=== PATIENT | male | born 1955 | race Two or more races ===

== ENCOUNTER → 2016-10-25 | Outpatient (CLI) | payer OTHER | LOC: CIMAGING 14:46 | PROVIDERS: ATTEND Family Medicine | DX: R93.7 Abnormal findings on diagnostic imaging of other parts of musculoskeletal system (principal); M79.671 Pain in right foot | CPT/HCPCS: 73610-PO; 73630-PO ==

== ENCOUNTER 2017-05-07 05:15 | Inpatient (IN) | payer OTHER ==
[2017-05-07] MEDS ORDERED: LR 1,000 ML IV ONE (05:44)
[2017-05-07] MEDS ORDERED: LIDOCAINE 1% 2 ML INJ ID PRN (05:44)
--- NOTE | 2017-05-07 06:41 | PDHPUP ---
History & Physical Update H&P update statement: This history and physical update is based on an assessment of the patient which was completed after admission or registration (within 24 hours), but prior to the surgery/procedure. H&P update: H&P reviewed & patient examined, no change in patient's condition since H&P completed
[2017-05-07] MEDS ORDERED: MIDAZOLAM 2 MG/2 ML VIAL IVP ONE (07:10)
--- NOTE | 2017-05-07 07:10 | PDANEPAE ---
ANE History of Present Illness prostate ca ANE Past Medical History - Cardiovascular History Hx Hypertension: No Hx Arrhythmias: No Hx Chest Pain: No Hx Coronary Artery / Peripheral Vascular Disease: No Hx CHF / Valvular Disease: No Hx Palpitations: No - Pulmonary History Hx COPD: No Hx Asthma/Reactive Airway Disease: No Hx Recent Upper Respiratory Infection: No Hx Oxygen in Use at Home: No Hx Sleep Apnea: No Sleep Apnea Screening Result - Last Documented: Negative - Neurologic History Hx Cerebrovascular Accident: No Hx Seizures: No Hx Dementia: No - Endocrine History Hx Diabetes: No - Renal History Hx Renal Disorders: Yes Renal History Comment: prostate ca. bph. hx of uti - Liver History Hx Hepatic Disorders: No - Neurological & Psychiatric Hx Hx Neurological and Psychiatric Disorders: No - Cancer History Hx Cancer: Yes Cancer History Comment: prostate ca currently - Congenital Disorder History Hx Congenital Disorders: No - GI History Hx Gastrointestinal Disorders: No - Other Health History Other Health History: wears reading glasses. wears bilateral hearing aides - Chronic Pain History Chronic Pain: No - Surgical History Prior Surgeries: ear surgery. ankle surgery. knee surgery ANE Review of Systems Review of Systems: - Exercise capacity METS (RN): 5 METS ANE Patient History - Allergies Allergies/Adverse Reactions: No Known Allergies Allergy (Verified 04/16/17 10:54) - Home Medications Home Medications: Tamsulosin HCl [Flomax 0.4 MG (*)] 0.4 mg PO DAILY@1830 04/11/17 [Last Taken 06/09] - NPO status NPO Since - Liquids (Date): 05/06/17 NPO Since - Liquids (Time): 22:00 NPO Since - Solids (Date): 05/04/17 - Smoking Hx Smoking Status: Never smoked - Family Anes Hx Family Hx Anesthesia Complications: none ANE Labs/Vital Signs - Vital Signs Blood Pressure: 105/79 Heart Rate: 67 Respiratory Rate: 16 O2 Sat (%): 96 Height: 187.96 cm Weight: 8.618 kg ANE Physical Exam - Airway Neck exam: FROM Mallampati Score: Class 2 Mouth exam: normal dental/mouth exam - Pulmonary Pulmonary: no respiratory distress - Cardiovascular Cardiovascular: regular rate and rhythym - ASA Status ASA Status: II ANE Anesthesia Plan Anesthesia Plan: general endotracheal anesthesia
[2017-05-07] MEDS ORDERED: BUPIVACAINE 0.5% 30 ML SDV ONE (07:12)
[2017-05-07] MEDS ORDERED: ROCURONIUM 100 MG/10 ML VIAL ONE (07:13)
[2017-05-07] MEDS ORDERED: HYDROmorphONE/DILAUDID 2 MG/ML INJ ONE ×2 (07:13→12:08)
[2017-05-07] MEDS ORDERED: LIDOCAINE 2% 5 ML SDV ONE (07:13)
[2017-05-07] MEDS ORDERED: ONDANSETRON 4 MG/2 ML VIAL ONE (07:13)
[2017-05-07] MEDS ORDERED: DEXAMETHASONE 4 MG/ML VIAL ONE (07:13)
[2017-05-07] MEDS ORDERED: PROPOFOL 200 MG/20 ML VIAL ONE (07:14)
[2017-05-07] MEDS ORDERED: fentaNYL 100 MCG/2 ML INJ ONE ×3 (07:14→12:54)
[2017-05-07] MEDS ORDERED: ceFAZolin 2 GM in NS 100 ML IV ONE (07:17)
[2017-05-07 07:25] LABS: APTT 25.2 SEC (23.0-38.0); INR 1.19 (0.83-1.16); PROTIME(PATIENT) 15.1 SEC (12.0-15.0)
[2017-05-07 07:31] LABS: ANION GAP 6 mEq/L (8-16); CALCIUM 8.9 mg/dL (8.5-10.4); CARBON DIOXIDE 25 mEq/l (22-31); CHLORIDE 106 mEq/L (97-110); CREATININE 0.8 mg/dL (0.7-1.3); GLOMERULAR FILTRATION RATE > 60; GLUCOSE 92 mg/dL (70-100); POTASSIUM 4.2 mEq/L (3.5-5.2); SODIUM 137 mEq/L (134-144)
[2017-05-07] MEDS ORDERED: BUPIVACAINE 0.25% 30 ML SDV ONE (12:11)
[2017-05-07] MEDS ORDERED: MEPERIDINE 25 MG/ML SYR IVP PRN (12:27)
[2017-05-07] MEDS ORDERED: PROMETHAZINE HCL 25 MG/ML INJ IVP PRN (12:27)
[2017-05-07] MEDS ORDERED: HYDROmorphONE/DILAUDID 1 MG/ML INJ IVP PRN (12:27)
[2017-05-07] MEDS ORDERED: fentaNYL 100 MCG/2 ML INJ IVP PRN (12:27)
[2017-05-07] MEDS ORDERED: NALOXONE HCL 0.4 MG/ML INJ IVP PRN (12:27)
[2017-05-07] MEDS ORDERED: HYDROCODONE/APAP 5/325 TAB PO PRN (12:27)
[2017-05-07] MEDS ORDERED: ONDANSETRON 4 MG/2 ML VIAL IVP PRN (12:27)
--- NOTE | 2017-05-07 12:33 | POSTOPPROG ---
Post Op Note Date of Operation: 05/07/17 Surgeon: Joe Hinkle Box Blank Machine Operator: Yesenia Johnston SA Anesthesia: GET(General Endotracheal) Pre-op Diagnosis: Prostate cancer Post-op Diagnosis: same Indication: same Procedure: robotic RRP and BPLND Inf/Abcess present in the surg proc area at time of surgery?: No Depth: Organ Space EBL: 50-100 Total fluids administered: 2 l Complications: none Drains: Reji Quispe Specimen(s): Porstate and SV, Bilateral pelvic lymph nodes -
[2017-05-07] MEDS ORDERED: KETOROLAC 30 MG/1 ML SDV IVP ONE (12:37)
[2017-05-07] MEDS ORDERED: ACETAMINOPHEN 650 MG/20.3 ML UDCUP PO PRN (12:37)
--- NOTE | 2017-05-07 12:41 | POSTANESTH ---
Post Anesthetic Evaluation Cardiovascular Status: Normal, Stable Respiratory Status: Normal, Stable Level of Consciousness/Mental Status: Can Participate in Eval Pain Control: Adequate, Prn Tx Ordered Nausea/Vomiting Control: Adequate, Prn Tx Ordered Complications Possibly Related to Anesthesia: None Noted
[2017-05-07] MEDS ORDERED: KETOROLAC 30 MG/1 ML SDV ONE (12:54)
--- NOTE | 2017-05-07 15:07 | GOP ---
[f rep st] OPERATIVE REPORT DATE OF OPERATION: 05/07/2017 SURGEON: Joe Hinkle MD PREOPERATIVE DIAGNOSIS: [place] 7 prostate cancer in 4 cores. POSTOPERATIVE DIAGNOSIS: [place] 7 prostate cancer in 4 cores. PROCEDURE PERFORMED: Robotic assisted laparoscopic radical retropubic prostatectomy with left and ri ght pelvic lymph node dissection, bilateral nerve-sparing with left complete nerve-sparing and right partial nerve-sparing due to disease near the right neurovascular bundle, but not invading the neurov ascular bundle on MRI. FINDINGS: SPECIMENS: Prostate, seminal vesicles and vas, sent to Pathology for analysis as well as left pelvic lymph node packet and right pelvic lymph node packet. ESTIMATED BLOOD LOSS: 50 cc. INDICATIONS: The patient is a very pleasant 61-year-old male with [place] 7 prostate cancer. His PS A was 14. The pelvic MRI did not show any spread of disease, and that this was likely self-contained . After a long discussion of the risks, benefits, alternatives, he has consented to the above proced ure. DESCRIPTION OF PROCEDURE: The patient was identified by name, medical record number, wrist band, was brought to the operating room, where he received sterile prep and drape in the standard surgical fas hion. He was placed in low lithotomy position, meticulously prepped and padded. A Coello catheter wa s placed, and we gained access to the abdomen using a Veress needle atraumatically. We insufflated a nd placed a 12 mm port as our camera port, and then all other ports were placed in normal anatomic po sition under good visualization, in an atraumatic manner. We then docked the robot. The patient was in 25 degrees head-down prior to docking. We inserted our instruments. We put the colon down low to the white line of Toldt, and dissected down to the reflection of the per itoneum 1 cm above the rectum, incised this, and dissected out the seminal vesicles and vas atraumati lindsey with minimal cautery. We placed Weck clips on the artery to the seminal vesicle bilaterally, a nd then mobilized the ampulla, the seminal vesicles anteriorly, posteriorly and laterally. We turned our attention anteriorly, and mobilized the bladder along the medial umbilical ligaments do wn to the level of the vas bilaterally, and took this down to the pubis, and dissected along Ulises's ligament, down to the endopelvic fascia bilaterally. This was incised bilaterally. There was a lef t-sided anterior artery that ran along the pelvic sidewall into the prostate, and this was carefully dissected along the prostate until it was mobilized away from the urethra, but this artery was preser marlin as this can contribute to return of erection function more rapidly. This was preserved throughou t the case. We then incised the endopelvic fascia bilaterally. We took down our pedicles of the pro state as well as the puboprostatic ligament, and a suture was used to suture ligate the dorsal venous complex; again, being careful to preserve the artery and this artery was not tied off as part of thi s dorsal venous complex ligation. We then turned our attention toward the bladder neck. We placed cephalad traction on the bladder and carefully incised this, and dissected carefully the bladder away from the prostate. We took a wider margin along the right side as there was a nodule along the right side, and we dissected down throug h the urethral fibers. The Coello catheter was brought anteriorly, and the prostate was reflected ant eriorly. The urethra was incised posteriorly and we carried this down to the posterior bladder neck, to the vas and seminal vesicles, which were then brought anteriorly. We completed our bladder neck dissection. We turned our attention to the nerve sparing; the left-sided nerve-sparing was performed by incising the prostatic fascia, dissecting this away, we used Weck clips to control the pedicles after dissecti ng the neurovascular bundle away from the pedicle; Weck clips were placed, and the neurovascular bund les were dissected easily off the prostate, down along the urethra. On the right side, we also perfo rmed this. It should be noted that we opened Denonvilliers fascia prior to performing this maneuver. We took a slightly wider margin, and Weck clips were used to take the pedicle down, and then we use d Weck clips to take the neurovascular bundles off the prostate, down to the level of urethra. We then turned our attention anteriorly, and came through the dorsal venous complex with bipolar caut shweta, down to the level of the urethral fibers. These were incised carefully, making sure we did not give an apical margin and leaving good length of the urethra. Carried this down to the urethral fibe rs through the rectourethralis muscle, which was incised, and then the prostate was passed off the fi eld. The neurovascular bundle dissection was intact, and there were good pulses on both neurovascula r bundles visually. We then used the V-Loc suture to reconstruct the rectourethralis muscle. The bl adder neck was somewhat large, so we used the 3-0 Vicryl to reconstruct the bladder neck, had to narr ow this down, and then used 3-0 Monocryl in a clockwise and counter-clockwise running manner to recon struct the urethrovesical anastomosis. We inserted a fresh Coello afterwards, irrigating; there was n o leak noted. We then turned our attention to the pelvic node dissection. We dissected along the left and right pe lvic node packets by the dissection using the node of [place] as a lateral margin, the pelvic sidewal l as a lateral margin, the iliac vein, the obturator nerve and the bifurcation of the iliacs cephalad . Bilaterally, these node packets were dissected out using Weck clips and passed off the field. We then placed a JONO drain down around the inner anastomosis, placed the prostate in the bag, and undo cked the robot, leveled the bed, and turned our attention towards closure. We brought the prostate o ut through the camera port. A JONO drain was brought out through the left robotic port, and we irrigat ed copiously all of our incisions. After closing the camera port with an 0 Vicryl in a lateral elsie r, we irrigated again copiously and placed Marcaine with epinephrine in all incisions, and closed wit h 4-0 Monocryl all incisions. Dressings were applied. The JONO drain was stitched into place. A Fole y catheter was secured and the patient was awakened from anesthesia, brought to the recovery room in stable condition. COMPLICATIONS: None. URINE OUTPUT: None recorded through most of the case, but 200 cc was registered prior to incising th e bladder. DRAINS: An 18-Thai Coello catheter, and a JONO drain. /[id number]/MODL
[2017-05-07] MEDS: KETOROLAC 15 MG/1 ML SDV IVP SCH ×2 (17:59→23:28)
[2017-05-08 05:34] LABS: % IMMATURE GRANULYOCYTES 0.3 % (0.0-1.1); ABSOLUTE IMMATURE GRANULOCYTES 0.03 10^3/uL (0.00-0.10); ADD DIFF? NO; ADD MORPH? NO; ADD SCAN? NO; ATYPICAL LYMPHOCYTE FLAG 0 (0-99); FRAGMENT RBC FLAG 0 (0-99); HEMATOCRIT 40.8 % (40.0-51.0); HEMOGLOBIN 14.2 g/dL (13.7-17.5); LEFT SHIFT FLG 0 (0-99); LIPEMIA HEMOLYSIS FLAG 90 (0-99); MEAN CELL HEMOGLOBIN 32.8 pg (27.9-34.1); MEAN CELL HEMOGLOBIN CONCENTR. 34.8 g/dL (32.4-36.7); MEAN CELL VOLUME 94.2 fL (81.5-99.8); MEAN PLATELET VOLUME 9.5 fL (8.7-11.7); PLATELET CLUMPS FLAG 0 (0-99); PLATELET COUNT 198 10^3/uL (150-400); RED BLOOD CELL COUNT 4.33 10^6/uL (4.40-6.38)
[2017-05-08] MEDS: KETOROLAC 15 MG/1 ML SDV IVP SCH ×3 (05:40→18:48)
[2017-05-08 05:58] LABS: ANION GAP 10 mEq/L (8-16); CALCIUM 8.8 mg/dL (8.5-10.4); CARBON DIOXIDE 24 mEq/l (22-31); CHLORIDE 103 mEq/L (97-110); GLOMERULAR FILTRATION RATE > 60; GLUCOSE 105 mg/dL (70-100); SODIUM 137 mEq/L (134-144)
[2017-05-08] MEDS: OXYCODONE/APAP 5/325 TAB PO PRN ×2 (08:45→13:51)
[2017-05-08 13:30] VITALS: O2SAT 96
--- NOTE | 2017-05-08 14:34 | ASMTCMCOM ---
CM Note CM Note Notes: Reviewed chart and discussed w/RN. Pt will dc home independantly w/no CM needs. Date Signed: 05/08/2017 02:33 PM Electronically Signed By:Madelyn Tsang RN
[2017-05-08 15:40] VITALS: BP 124/81; PULSE 63; RESP 17; TEMP 98.4
--- NOTE | 2017-05-08 18:38 | SOAPPROG ---
SOAP Progress Note Assessment/Plan: Assessment: Doing well - dc home Plan:home 05/08/17 18:36 Objective: Vital Signs Temp Pulse Resp BP Pulse Ox 36.9 C 63 17 124/81 H 96 05/08/17 15:40 05/08/17 15:40 05/08/17 15:40 05/08/17 15:40 05/08/17 15:40 Laboratory Results 05/08/17 05:15 05/08/17 05:15 05/07/17 05/08/17 05/09/17 05:59 05:59 05:59 Intake Total 2210 2500 Output Total 1715 15 Balance 495 2485 PT 15.1 SEC (12.0-15.0) H 05/07/17 07:05 INR 1.19 (0.83-1.16) H 05/07/17 07:05 Physical Exam - Physical Exam EENT: PERRL/EOMI Neck: non-tender Respiratory: chest non-tender Cardiac/Chest: normal peripheral pulses Abdomen: normal bowel sounds Male Genitalia: normal genitalia Skin: normal color ICD10 Worksheet Patient Problems: Problems Problem Status Onset Malignant neoplasm of prostate Acute Malignant neoplasm of prostate Acute - ICD10 Problem Qualifiers (1) Malignant neoplasm of prostate (2) Malignant neoplasm of prostate
--- NOTE | 2017-05-09 10:03 | ASDISCHSUM ---
Discharge Information Plan Status: Medically Cleared to Leave: Discharge Date:05/08/2017 07:39 PM CM D/C Disposition: ADT D/C Disposition:Home, Routine, Self-Care Projected Discharge Date:05/08/2017 07:39 PM Transportation at D/C: Discharge Delay Reason: Follow-Up Date:05/08/2017 07:39 PM Discharge Slot: Final Diagnosis: Placement Information Patient Contact Information Contact Name:RADHA Relationship:Other Address: Home Phone: City: [facility] Phone: [facility] Code: Email: Financial Information Financial Class:HMO and PPO Plans Primary Plan Desc:[employer]ON[employer]ALE[employer] PPO Primary Plan Number:[id number] Secondary Plan Desc: Secondary Plan Number: Assessment Information [facility] CM Progress Note CM Note CM Note Notes: Reviewed chart and discussed w/RN. Pt will dc home independantly w/no CM needs. Date Signed: 05/08/2017 02:33 PM Electronically Signed By:Madelyn Tsang RN Intervention Information
== END 2017-05-08 19:39 | disposition home or self-care (01) | DRG 708 ==
LOC: F1N 05:15
PROVIDERS: ADMIT Urology; ATTEND Urology
PROC: 07BC4ZX Excision of Pelvis Lymphatic, Percutaneous Endoscopic Approach, Diagnostic (ICD-10-PCS; principal; 2017-05-07 07:15)
PROC: 0VT04ZZ Resection of Prostate, Percutaneous Endoscopic Approach (ICD-10-PCS; principal; 2017-05-07 07:15)
DX: C61 Malignant neoplasm of prostate (principal)
CPT/HCPCS: J0171; J0690; J1100; J1170; J1885; J2250; J2405; J2704; J3010